=== PATIENT | male | born 1955 | race Caucasian/White ===

== ENCOUNTER 2024-10-07 09:27 | Emergency (ER) | payer OTHER ==
[~2024-10-07] VITALS: Ht 175.3 cm; Wt 131.5 kg
[2024-10-07] MEDS ORDERED: CEFTRIAXONE SODIUM 1,000 MG VIAL ONE (10:11)
[2024-10-07] MEDS ORDERED: KETOROLAC TROMETHAMINE 30 MG VIAL ONE (10:12)
[2024-10-07] MEDS ORDERED: TAMSULOSIN HCL 0.4 MG CAP PO ONE ×2 (10:12→10:15)
[2024-10-07] MEDS ORDERED: KETOROLAC TROMETHAMINE 60 MG VIAL IM ONE (10:15)
[2024-10-07] MEDS ORDERED: CEFTRIAXONE SODIUM 1,000 MG VIAL IV ONE (10:15)
[2024-10-07 10:57] LABS: HEMATOCRIT 38.8 % (39.0-48.0); HEMOGLOBIN 13.1 g/dL (13-16.00); MEAN CELL VOLUME 85.2 fL (80.0-100.00); MEAN CORPUSCULAR HEMOGLOBIN 28.8 pg (27.00-32.0); MEAN CORPUSCULAR HGB CONC 33.8 g/dl (32.0-36.0); PLATELET COUNT 191 K/uL (150-450); RED BLOOD COUNT 4.56 M/uL (4.00-6.00); RED CELL DISTRIBUTION WIDTH 15.2 % (11.5-14.5)
[2024-10-07 11:29] LABS: PH,URINE 5.5 (5.0-8.0); URINE APPEARANCE Cloudy; URINE BILIRRUBIN Negative (NEGATIVE); URINE BLOOD Large; URINE COLOR Orange; URINE GLUCOSE Negative (NEGATIVE); URINE KETONE Negative (NEGATIVE); URINE LEUKOCYTE Trace; URINE NITRATE Negative; URINE PROTEIN 30 (NEGATIVE); URINE UROBILINOGEN 0.2 E.U./dl
[2024-10-07 11:30] LABS: URINE BACTERIA 107.7 uL (0.0-1933); URINE EPITHELIAL CELLS 33.6 uL (0.0-38.8); URINE RBC 3873.5 uL (0.0-20.8); URINE WBC 9.6 uL (0.0-23.2)
[2024-10-07 11:35] LABS: ALBUMIN 3.5 gm/dL (3.4-5.0); BILIRUBIN TOTAL 1.16 mg/dL (0.3-1.2); CALCIUM 8.6 mg/dL (8.5-10.1); GFR 9.64; GLOBULINA 3.8 G/DL (2.4-3.5); POTASSIUM 3.99 mEq/L (3.5-5.1); TOTAL PROTEIN 7.3 gm/dL (6.4-8.2)
[2024-10-07 11:46] LABS: CREATININE SERUM 5.9 mg/dL (0.70-1.30)
[2024-10-07] MEDS ORDERED: BACTRIM DS TAB1 EACH PO (12:04)
[2024-10-07] MEDS ORDERED: PEPCID AC20 MG PO (12:04)
== END 2024-10-07 12:59 | disposition home or self-care (01) ==
LOC: ER 09:29
PROVIDERS: General Practice
DX: R33.9 Retention of urine, unspecified (principal); I25.810 Atherosclerosis of coronary artery bypass graft(s) without angina pectoris; Z72.0 Tobacco use; I10 Essential (primary) hypertension; E78.00 Pure hypercholesterolemia, unspecified; M10.9 Gout, unspecified
CPT/HCPCS: 36415; 51702; 96365; 96372; 99283; J0696; J1885